=== PATIENT | female | born 1985 ===

== ENCOUNTER 2021-08-07 09:28 | Inpatient (IN) | payer SELFPAY ==
[2021-08-07] MEDS ORDERED: METOCLOPRAMIDE 10 MG/2 ML INJ IV SCH (10:00)
[2021-08-07] MEDS ORDERED: LACTATED RINGERS 1,000 ML IV SCH (10:00)
[2021-08-07] MEDS ORDERED: BICITRA ORAL LIQD 30ML PO SCH (10:00)
[2021-08-07] MEDS ORDERED: ceFAZolin/Water 2 GM/20 ML 2 GM/20 ML SYRINGE IV NR (10:00)
[2021-08-07] MEDS ORDERED: OXYTOCIN DRIP 30 UNITS/500 ML BAG IV SCH ×2 (10:00→17:45)
[2021-08-07] MEDS ORDERED: FAMOTIDINE 20 MG/2 ML INJ IV SCH (10:00)
[2021-08-07] MEDS ORDERED: dexAMETHasone 20 MG/5 ML VIAL ONE (10:18)
[2021-08-07] MEDS ORDERED: LIDOCAINE MPF (2%) 20 MG/1 ML VIAL 5 ML ONE (10:18)
[2021-08-07] MEDS ORDERED: ONDANSETRON 4 MG/2 ML INJ ONE (10:18)
[2021-08-07] MEDS ORDERED: BUPIVACAINE/PF (0.5%) 5 MG/1 ML 30 ML VIAL INFILTRATI ONE ×2 (10:18→13:57)
[2021-08-07] MEDS ORDERED: KETOROLAC 30 MG/1 ML INJ ONE (10:18)
--- NOTE | 2021-08-07 10:26 | Anesthesia Consultation ---
Anesthesia Consult and Med Hx Date of service: 08/07/21 - Airway Anesthetic Teeth Evaluation: Good ROM Head & Neck: Adequate Mental/Hyoid Distance: Adequate Mallampati Class: Class II Intubation Access Assessment: Probably Good - Pulmonary Exam CTA: Yes - Cardiac Exam Cardiac Exam: RRR - Pre-Operative Health Status ASA Pre-Surgery Classification: ASA2 Proposed Anesthetic Plan: Spinal Nerve Block: TAP - Pulmonary Hx Smoking: No Hx Asthma: No COPD: No Hx Pneumonia: No Hx Sleep Apnea: No - Cardiovascular System Hx Hypertension: No Hx Heart Attack/AMI: No Hx Angina: No - Central Nervous System Hx Seizures: No Hx Psychiatric Problems: No - Gastrointestinal Hx Gastroesophageal Reflux Disease: No - Endocrine Hx Renal Disease: No Hx End Stage Renal Disease: No Hx Liver Disease: No Hx Insulin Dependent Diabetes: No Hx Non-Insulin Dependent Diabetes: No Hx Hypothyroidism: No Hx Hyperthyroidism: No - Hematic Hx Anemia: No Hx Sickle Cell Disease: No - Other Systems Hx Alcohol Use: No - Additional Comments Anesthesia Medical History Comments: previous c/s
--- NOTE | 2021-08-07 10:26 | Anesthesia Day of Surgery ---
Anesthesia Day of Surgery - Day of Surgery Patient Examined: Yes Patient H&P Reviewed: Yes Patient is NPO: Yes Beta Blockers: No Cardiac Clearance: No Pulmonary Clearance: No Dae's Test: N/A
--- NOTE | 2021-08-07 10:35 | History and Physical Report ---
History of Present Illness Date of examination: 08/07/21 Date of admission: 08/07/21 09:28 Chief complaint: scheduled repeat c/section History of present illness: at 39.0wks by LMP c/w U/S. care at [facility] and pt seen in clinic at [facility] for her scheduled repeat c/section. Pt also desired permanent sterilization but did not have the finances to pay the hospital for her procedure. pt admits to movement, denies LOF or VB. pt admits to occassional ctx. labs with HIV neg, HepBsAg neg, GBS+, rubella immune, RPR neg the positive with 1:8 titer however FTA negative. Pt denies any tx or exposure to syphilis in the past. Blood type Rh positive with neg antibodies. Past History Past Medical History: no pertinent history Past Surgical History: section (x2 with keloid scar and pt doesn't care if remains) Social history: no significant social history - Obstetrical History Expected Date of Delivery: 08/14/21 Actual Gestation: 39 Week(s) 0 Day(s) : 3 Hx # Term Pregnancies: 2 Number of Living Children: 2 Medications and Allergies Allergies Allergy/AdvReac Type Severity Reaction Status Date / Time No Known Allergies Allergy Verified 08/07/21 09:37 Active Meds: Active Medications Citric Acid/Sodium Citrate (Bicitra Oral Liqd 30ml) 30 ml PO PREOP GALLO Stop: 08/07/21 18:00 Diphenhydramine HCl (Diphenhydramine 50 Mg/Ml Vial) 12.5 mg IV Q2H PRN PRN Reason: Itching Famotidine (Famotidine 20 Mg/2 Ml Inj) 20 mg IV PREOP GALLO Stop: 08/07/21 17:00 Hydromorphone HCl (Hydromorphone 1 Mg/1 Ml Inj) 0.5 mg IV Q4H PRN PRN Reason: breakthrough pain > 7/10 Lactated Ringer's (Lactated Ringers) 1,000 mls @ 2,250 mls/hr IV PREOP GALLO Stop: 08/08/21 10:27 Oxytocin/Sodium Chloride (Pitocin/Ns 30 Unit/500ml) 30 units in 500 mls @ 0 mls/hr IV TITR GALLO; Protocol Cefazolin Sodium (Ancef/Sterile Water 2 Gm/20 Ml) 2 gm in 20 mls @ 80 mls/hr IV PREOP NR; Protocol Stop: 08/07/21 18:00 Metoclopramide HCl (Metoclopramide 10 Mg/2 Ml Inj) 10 mg IV PREOP GALLO Stop: 08/07/21 18:00 Nalbuphine HCl (Nalbuphine 10 Mg/1 Ml Inj) 2.5 mg IV Q2H PRN PRN Reason: Itching Naloxone HCl (Naloxone 0.4 Mg/1 Ml Inj) 0.2 mg IV Q2MIN PRN PRN Reason: Res Rate </= 8 or 02 SAT < 92% Ondansetron HCl (Ondansetron 4 Mg/2 Ml Inj) 4 mg IV Q8H PRN PRN Reason: Nausea And Vomiting Promethazine HCl (Promethazine 25 Mg Tab) 25 mg PO Q6H PRN PRN Reason: Nausea And Vomiting Promethazine HCl (Promethazine 25 Mg Rect Supp) 25 mg TN Q6H PRN PRN Reason: Nausea And Vomiting Review of Systems All systems: negative (no complaints) - Vital Signs Vital signs: Vital Signs Pulse BP Pulse Ox 68 97/54 98 08/07/21 09:55 08/07/21 09:55 08/07/21 09:55 Temp Pulse Resp BP Pulse Ox 98.3 F 61 14 97/54 98 08/07/21 09:56 08/07/21 10:25 08/07/21 09:56 08/07/21 09:56 08/07/21 10:25 - Physical Exam Breasts: Positive: deferred Cardiovascular: Regular rate Lungs: Positive: Normal air movement Genitourinary (Female): Positive: normal external genitalia Vagina: Positive: normal moisture Uterus: Positive: enlarged Extremities: Positive: normal - Obstetrical FHR: category 1 Uterine Contraction Monitor Mode: External Cervical Dilatation: 0 (done 08/06/21 in clinic) Cervical Effacement Percentage: 0 station: -2 Results All other labs normal. Assessment and Plan Multiparous, previous c/s x2 for repeat c/section; unclear why RPR ws ever 1:8 and FTA neg 1. Admit for scheduled repeat c/section 2. Repeat RPR here and notify peds of results in prenatals 3. NICU and anesthesia notified 4. Plan of care already explained and consents obtained in clinic on 08/06/21 All questions encouraged and answered.
[2021-08-07] MEDS ORDERED: HYDROmorphone 1 MG/1 ML INJ IV PRN (11:00)
[2021-08-07] MEDS ORDERED: diphenhydrAMINE 50 MG/ML VIAL IV PRN (11:00)
[2021-08-07] MEDS ORDERED: PROMETHAZINE 25 MG TAB PO PRN (11:00)
[2021-08-07] MEDS ORDERED: NalbUPHINE 10 MG/1 ML INJ IV PRN (11:00)
[2021-08-07] MEDS ORDERED: ONDANSETRON 4 MG/2 ML INJ IV PRN (11:00)
[2021-08-07] MEDS ORDERED: PROMETHAZINE 25 MG RECT SUPP PR PRN (11:00)
[2021-08-07] MEDS ORDERED: NALOXONE 0.4 MG/1 ML INJ IV PRN ×2 (11:00→17:45)
[2021-08-07 11:35] LABS: Hematocrit 33.6 % (30.3-42.9); Mean Corpuscular HGB Conc 33 % (30-34); Mean Corpuscular Volume 89 fl (79-97); Platelet Count 218 K/mm3 (140-440); Red Blood Count 3.79 M/mm3 (3.65-5.03); Red Cell Distribution Width 15.3 % (13.2-15.2)
[2021-08-07 12:06] LABS: Band Neutrophils # (Manual) 0.1 K/mm3; Basophils % (Manual) 0 % (0.0-1.8); Eosinophils % (Manual) 0 % (0.0-4.3); Total Cells Counted 100
[2021-08-07 12:07] LABS: Anisocytosis 1+; Large Platelets Few; Platelet Estimate Consistent w Auto
[2021-08-07] MEDS ORDERED: ePHEDrine SULFATE 50 MG/1 ML INJ ONE (13:51)
--- NOTE | 2021-08-07 13:59 | Progress Note ---
Spinal Anesthesia Block - Spinal Anesthesia Block Start Time: 13:40 Stop Time: 13:47 Performed by:: FREDY AMBRIZ ([facility]) Procedure: Spinal anesthesia block is being performed for [c/s]. H&P, labs have been reviewed. Patient's questions and concerns have been answered. Informed consent has been performed. Timeout has was performed. Patient in sitting position on side of bed. Sterile prep and drape was performed. 3 mL 1% lidocaine skin wheal at L [3]-L [4]. Needle introducer advanced. 25-gauge spinal needle advanced, [+] CSF [-] blood. [Marcaine 10mg and Precedex 5mcg] Spinal dose was given. All needles removed. Patient tolerated procedure well.
[2021-08-07] MEDS ORDERED: LACTATED RINGERS 1,000 ML ONE (15:49)
--- NOTE | 2021-08-07 16:43 | Procedure Note ---
OB Delivery Note - Delivery Date of Delivery: 08/07/21 Surgeon: ROSA GONZALES Estimated blood loss: 500cc - Section Preop diagnosis: repeat Postop diagnosis: same (and partial abruption) section procedure: repeat low transverse (and lysis of adhesion) Disposition: floor Complications: none Narrative: Date: 08/07/21 Surgeon: Rosa Gonzales MD Preop Dx: IUP at 39.0wks, H/O C/Section x2 with keloid scar. Postop Dx: same and partial abruption Procedure : Repeat Low Transverse section Anesthesia: Spinal Intake: 1200cc Output: 350cc clear urine EBL: 500cc After the risks, benefits and alternatives of procedure discussed, patient signed consents and was taken to the operating room. Pt was given spinal anesthesia. After same was adequate, patient was prepped and draped in the usual sterile fashion. Barnes catheter in place and draining clear urine. Pt was given prophylactic antibiotic per protocol and time out was done Pfannenstiel skin incision was made just along upper edge of keloid scar and taken sharply to the fascia and the incision extended using electrocautery. Superior edge of the fascia was grasped with allison clamps and the rectus muscle using blunt dissection and also using electrocautery. Lower portion of the fascia also sharply. Rectus muscle in the midline and Peritoneal cavity entered sharply and extended with good visualization of the bladder. Bladder was densely adherent to mid-level of uterus, and therefore lysis of adhesions done sharply using metzenbaum scissors until the bladder was taken down out of the way. Myles retractor placed. Lower uterine segment then entered transversely and the anterior placenta was noted to be partially with dark color clots, the amniotic sac entered using allys clamps. Uterine incision extended using bandage scissors. delivered, bulb suctioned, cord clamped and baby handed to waiting pediatricians. The remaining attached placenta then delivered completely and uterine cavity cleared of all clots and debri. The uterus was exteriorized and closed in 2 layers using 0-monocryl suture in a running locked fashion and then an additional layer of imbrication suture. The uterus was still boggy therefore additional figure suture placed x4 across the incision with excellent response and now uterus firm. Surgicel powder placed along the incision line. The gutters were cleared of clots and debri and anterior peritoneum closed with anterior rectus muscle and scar tissue 0-vicryl suture in a running fashion. Rectus fascia closed with 0-vicryl suture and subcutaneous tissue copiously irrigated with normal saline and re-approximated using 3-0 vicryl suture in a continous fashion. Excellent hemostasis remains. The skin was closed with 4-0 monocryl suture and steristrips placed with pressure dressing and dermabond to right side near the suture knot for less than 1inch. Sponge, lap, instrument and needle counts x2 were normal. Patient tolerated the procedure well and was taken to recovery room stable. Findings: Viable female , APGARS 8/9 and weight 3280g. Normal shaped uterus with dense bladder peritoneum adhesions and partially anterior placenta with dark red clots, normal tubes and ovaries bilaterally. - Infant A at 1 minute: 8 at 5 minutes: 9 Infant Gender: Female (clear amniotic fluid; wt 3280g)
[2021-08-07] MEDS ORDERED: ACETAMINOPHEN 325 MG TAB PO PRN (17:45)
[2021-08-07] MEDS ORDERED: SENNOSIDES 8.6 MG TAB PO PRN (17:45)
[2021-08-07] MEDS ORDERED: MAGNESIUM HYDROXIDE (MOM) ORAL LIQD UDC PO PRN (17:45)
[2021-08-07] MEDS ORDERED: WITCH HAZEL/ GLYCERIN PAD TP PRN (17:45)
[2021-08-07] MEDS ORDERED: IBUPROFEN 600 MG TAB PO PRN (17:45)
[2021-08-07] MEDS ORDERED: MORPHINE 4 MG/1 ML INJ IV PRN (17:45)
[2021-08-07] MEDS ORDERED: HYDROCORTISONE 25 MG RECTAL SUPP PR PRN (17:45)
[2021-08-07] MEDS ORDERED: LANOLIN/ZINC/DIMETHICONE (LANSINOH) 7 GM TP PRN (17:45)
[2021-08-08] MEDS: oxyCODONE /ACETAMINOPHEN 5-325MG TAB PO PRN ×3 (05:26→16:48)
[2021-08-08 07:46] LABS: Hematocrit 27.3 % (30.3-42.9)
[2021-08-08] MEDS: IBUPROFEN 800 MG TAB PO PRN ×3 (08:02→23:46)
--- NOTE | 2021-08-08 09:53 | Post Anesthesia Evaluation ---
- Post Anesthesia Evaluation Patient Participated: Yes Airway Patent: Yes Stable Respiratory Function: Yes Nausea/Vomiting: No Temp > 96.8F: Yes Pain Manageable: Yes Adequeate Hydration: Yes Anesthesia Complications: No Block Receding Appropriately: Yes
[2021-08-08] MEDS: PRENATAL VIT27-FE FUMARATE-FOLIC ACID VIT TAB PO SCH (10:07)
[2021-08-08] MEDS: FERROUS SULFATE 325 MG TAB PO SCH (10:07)
--- NOTE | 2021-08-08 10:41 | Progress Note ---
Assessment and Plan POD#1 C/S with no flatus and intermittent Low BP, that appears to present from labs 1. Will check EKG with intermittent bradycardia 2. Will give reglan ATC and pt to ambulate in room 3. Will remove dressing tomorrow 4. Routine post op care Subjective Date of service: 08/08/21 Principal diagnosis: POD#1 C/S Interval history: pt lying in bed and has not ambulated in the room. Denies flatus. Denies nausea or vomiting or fever/chills. Vag bleed less than a period. pt is bottle feeding in the hospital and plans to breast feed at home. Objective - Constitutional Vitals: Vital Signs - 12hr 08/08/21 08/08/21 08/08/21 01:20 05:26 05:34 Temperature 98.1 F 97.5 F L Pulse Rate 65 62 Respiratory 16 16 16 Rate Blood Pressure 92/47 106/62 O2 Sat by Pulse 98 99 Oximetry 08/08/21 08:23 Temperature 97.6 F Pulse Rate 63 Respiratory 19 Rate Blood Pressure 88/47 O2 Sat by Pulse 96 Oximetry General appearance: Present: no acute distress - Neck Neck: normal ROM - Respiratory Respiratory effort: normal - Breasts Breasts: deferred - Cardiovascular Rhythm: regular (at times bradycardia noted on vitals) Extremities: No edema - Gastrointestinal General gastrointestinal: Present: soft, non-tender, other (Dressing C/D/I) - Genitourinary Female genitourinary: other (Lochia small, dark brown) - Integumentary Integumentary: warm, dry - Neurologic Neurologic: moves all extremities (while lying in bed) - Psychiatric Psychiatric: cooperative - Labs CBC & Chem 7: 08/08/21 07:10 Labs: Abnormal lab results 08/07/21 08/08/21 Range/Units 10:30 07:10 Hgb 9.0 L (10.1-14.3) gm/dl Hct 27.3 L D (30.3-42.9) % RDW 15.3 H (13.2-15.2) % Seg Neuts % (Manual) 75.0 H (40.0-70.0) % Medications & Allergies - Medications Allergies/Adverse Reactions: Allergies No Known Allergies Allergy (Verified 08/07/21 09:37) Home Medications: Home Medications Medication Instructions Recorded Confirmed Last Taken Type Ibuprofen [Motrin] 800 mg PO Q8HR PRN 21 Days #40 08/07/21 Unknown Rx tablet oxyCODONE /ACETAMINOPHEN [Percocet 1 tab PO Q4HR PRN 21 Days #30 tab 08/07/21 Unknown Rx 5/325] Active Medications: Generic Name Dose Route Start Last Admin Trade Name Freq PRN Reason Stop Dose Admin Acetaminophen 650 mg 08/07/21 17:45 Acetaminophen 325 Mg Tab PO Q4H PRN Fever >100.5/OWUSU Diphenhydramine HCl 12.5 mg 08/07/21 11:00 Diphenhydramine 50 Mg/Ml Vial IV Q2H PRN Itching Ferrous Sulfate 325 mg 08/08/21 10:00 08/08/21 10:07 Ferrous Sulfate 325 Mg Tab PO 325 mg QDAY GALLO Administration Hydrocortisone Acetate 25 mg 08/07/21 17:45 Hydrocortisone 25 Mg Rectal Supp RI BID PRN Hemorrhoids Hydromorphone HCl 0.5 mg 08/07/21 11:00 Hydromorphone 1 Mg/1 Ml Inj IV Q4H PRN breakthrough pain > 7/10 Oxytocin/Sodium Chloride 30 units in 500 mls @ 0 mls/hr 08/07/21 10:00 Pitocin/Ns 30 Unit/500ml IV TITR [facility] Protocol As Directed Cefazolin Sodium 2 gm/ Sodium 100 mls @ 200 mls/hr 08/07/21 22:00 08/08/21 06:34 Chloride IV 08/08/21 14:29 200 mls/hr Q8H GALLO Administration Protocol Oxytocin/Sodium Chloride 30 units in 500 mls @ 40 mls/hr 08/07/21 17:45 Pitocin/Ns 30 Unit/500ml IV TITR [facility] Protocol Ibuprofen 600 mg 08/07/21 17:45 Ibuprofen 600 Mg Tab PO Q6H PRN Pain, Mild (1-3) Ibuprofen 800 mg 08/07/21 17:45 08/08/21 08:02 Ibuprofen 800 Mg Tab PO 800 mg Q6H PRN Administration Pain, Moderate (4-6) Magnesium Hydroxide 30 ml 08/07/21 17:45 Magnesium Hydroxide (Mom) Oral Liqd Udc PO QHS PRN Constip Unrelieved By Senna Metoclopramide HCl 10 mg 08/08/21 11:00 Metoclopramide 10 Mg/2 Ml Inj IV 08/09/21 05:01 Q6H GALLO Morphine Sulfate 4 mg 08/07/21 17:45 Morphine 4 Mg/1 Ml Inj IV Q4H PRN Pain , Severe (7-10) Multi-Ingredient Ointment 1 applic 08/07/21 17:45 Lanolin/Zinc/Dimethicone (Lansinoh) 7 Gm TP PRN PRN dryness/cracking Multivitamins/Iron/Calcium 1 each 08/08/21 10:00 08/08/21 10:07 [id number] Fumarate-Folic Acid Vit Tab PO 1 each QDAY GALLO Administration Nalbuphine HCl 2.5 mg 08/07/21 11:00 Nalbuphine 10 Mg/1 Ml Inj IV Q2H PRN Itching Naloxone HCl 0.2 mg 08/07/21 11:00 Naloxone 0.4 Mg/1 Ml Inj IV Q2MIN PRN Res Rate </= 8 or 02 SAT < 92% Naloxone HCl 0.1 mg 08/07/21 17:45 Naloxone 0.4 Mg/1 Ml Inj IV Q2MIN PRN Res Rate </= 8 or 02 SAT < 92% Ondansetron HCl 4 mg 08/07/21 11:00 Ondansetron 4 Mg/2 Ml Inj IV Q8H PRN Nausea And Vomiting Oxycodone/Acetaminophen 2 tab 08/07/21 17:45 08/08/21 10:07 Oxycodone /Acetaminophen 5-325mg Tab PO 2 tab Q4H PRN Administration Pain, Moderate (4-6) Promethazine HCl 25 mg 08/07/21 11:00 Promethazine 25 Mg Tab PO Q6H PRN Nausea And Vomiting Promethazine HCl 25 mg 08/07/21 11:00 Promethazine 25 Mg Rect Supp RI Q6H PRN Nausea And Vomiting Senna 17.2 mg 08/07/21 17:45 Sennosides 8.6 Mg Tab PO QHS PRN Constipation Simethicone 80 mg 08/07/21 17:45 Simethicone 80 Mg Chew Tab PO Q6H PRN Gas pain Sodium Chloride 10 ml 08/07/21 17:45 Sodium Chloride 0.9% 10 Ml Flush Syringe IV 08/08/21 17:44 PRN NR Witch Reina/Glycerin 1 each 08/07/21 17:45 Witch Reina/ Glycerin Pad TP PRN PRN Hemorrhoids/cleansing/soothing
[2021-08-08] MEDS: SIMETHICONE 80 MG CHEW TAB PO PRN ×2 (10:47→21:12)
[2021-08-08] MEDS: METOCLOPRAMIDE 10 MG/2 ML INJ IV SCH ×3 (10:47→23:46)
[2021-08-08 11:09] LABS: Alanine Aminotransferase 9 units/L (7-56); Albumin 2.8 g/dL (3.9-5); Blood Urea Nitrogen 7 mg/dL (7-17); Calcium 8.4 mg/dL (8.4-10.2); Hemolysis Index 8
[2021-08-08 11:10] LABS: BUN/Creatinine Ratio 18
[2021-08-09] MEDS: METOCLOPRAMIDE 10 MG/2 ML INJ IV SCH (06:47)
[2021-08-09] MEDS: IBUPROFEN 800 MG TAB PO PRN ×3 (06:47→18:46)
[2021-08-09] MEDS: FERROUS SULFATE 325 MG TAB PO SCH (09:13)
[2021-08-09] MEDS: PRENATAL VIT27-FE FUMARATE-FOLIC ACID VIT TAB PO SCH (09:13)
[2021-08-09] MEDS ORDERED: LACTATED RINGERS 500 ML IV ONE ×2 (09:29→12:30)
--- NOTE | 2021-08-09 10:59 | Progress Note ---
Assessment and Plan A: /postop day 2 S/P section. Anemia. Lowish blood pressure. P: CBC, UA, urine culture. IV fluid bolus (LR). Recheck VS. Psych consult for positive depression screen. Remove dressing in shower today. Subjective - Subjective Date of service: 08/09/21 Principal diagnosis: /postop day 2 S/P section Interval history: Patient has psych consult pending due to positive depression screen. Patient reports: appetite normal, voiding normally, pain well controlled, flatus, ambulating normally, no dizzy ambulation, no nauseated [place]: doing well Objective - Vital Signs Latest vital signs: Vital Signs Temp Pulse Resp BP BP Pulse Ox Pulse Ox 08/09/21 08:33 98.4 F 99 H 83/44 08/09/21 06:47 14 08/08/21 23:50 98.2 F 58 L 18 95/56 95 08/08/21 23:46 16 08/08/21 20:20 96 08/08/21 17:35 98.1 F 61 18 94/48 96 08/08/21 12:15 97.8 F 60 18 78/41 98 Intake and Output 08/08/21 08/09/21 08/09/21 23:59 07:59 15:59 Intake Total 360 120 Balance 360 120 Intake: Oral 120 Intake, Free Water 360 Other: Total, Intake Amount 120 # Voids Void 1 1 - Exam Cardiovascular: Present: Regular rate, No murmurs Lungs: Present: Clear to auscultation Abdomen: Present: normal appearance, soft, normal bowel sounds. Absent: distention, tenderness, guarding Uterus: Present: normal, firm, fundal height below umbilicus. Absent: bogginess, tenderness Extremities: Absent: tenderness Incision: Present: dry, dressed (patient agrees for us to take dressing off in shower this morning) - Labs Labs: Abnormal lab results 08/08/21 08/08/21 Range/Units 10:03 11:04 Chloride 107.7 H (98-107) mmol/L Carbon Dioxide 20 L (22-30) mmol/L Creatinine 0.4 L (0.6-1.2) mg/dL POC Glucose 110 H (70-105) mg/dL Alkaline Phosphatase 166 H (35-129) units/L Total Protein 5.4 L (6.3-8.2) g/dL Albumin 2.8 L (3.9-5) g/dL
[2021-08-09 14:08] LABS: Basophils % (Auto) 0.5 % (0.0-1.8); Eosinophils % (Auto) 0.3 % (0.0-4.3); Hematocrit 29.9 % (30.3-42.9); Hemoglobin 9.9 gm/dl (10.1-14.3); Lymphocytes # (Auto) 1.4 K/mm3 (1.2-5.4); Lymphocytes % (Auto) 15.3 % (13.4-35.0); Mean Corpuscular HGB Conc 33 % (30-34); Mean Corpuscular Volume 90 fl (79-97); Monocytes # (Auto) 0.4 K/mm3 (0.0-0.8); Monocytes % (Auto) 4.8 % (0.0-7.3); Platelet Count 232 K/mm3 (140-440); Red Blood Count 3.34 M/mm3 (3.65-5.03); Red Cell Distribution Width 15.9 % (13.2-15.2)
[2021-08-09 18:25] LABS: Bacteria,Urine 1+ /HPF (Negative); Bilirubin,Urine NEG (Negative); Blood,Urine LG (Negative); Color,Urine Yellow (Yellow); Mucus,Urine FEW /HPF; Protein,Urine <15 mg/dL mg/dL (Negative); Urobilinogen,Urine < 2.0 mg/dL (<2.0)
[2021-08-09] MEDS: oxyCODONE /ACETAMINOPHEN 5-325MG TAB PO PRN (22:53)
--- NOTE | 2021-08-10 00:43 | Progress Note ---
Assessment and Plan Hemoglobin stable DC home today with appropriate follow-up Routine postop care Sheldon Gómez MD Subjective - Subjective Date of service: 08/10/21 Principal diagnosis: /postop day 3 S/P section Patient reports: appetite normal, voiding normally, pain well controlled, ambulating normally : doing well Objective - Vital Signs Latest vital signs: Vital Signs Temp Pulse Resp BP Pulse Ox 08/09/21 22:53 18 08/09/21 18:46 16 08/09/21 12:49 16 08/09/21 08:33 98.4 F 99 H 83/44 08/09/21 08:25 100 08/09/21 06:47 14 - Exam Breasts: Present: deferred Cardiovascular: Present: Regular rate Lungs: Present: Clear to auscultation Abdomen: Present: normal appearance, soft, normal bowel sounds Uterus: Present: fundal height below umbilicus Extremities: Present: normal Deep Tendon Reflex Grade: Normal +2 Incision: Present: normal, dry, intact - Labs Labs: Abnormal lab results 08/09/21 Range/Units 13:10 RBC 3.34 L (3.65-5.03) M/mm3 Hgb 9.9 L (10.1-14.3) gm/dl Hct 29.9 L (30.3-42.9) % RDW 15.9 H (13.2-15.2) % Seg Neutrophils % 79.1 H (40.0-70.0) %
--- NOTE | 2021-08-10 00:44 | Discharge Summary ---
Providers - Providers Date of Admission: 08/07/21 09:28 Date of discharge: 08/10/21 Attending physician: MICHELINE GONZALES 08/08/21 18:10 psychiatry consult [Consult to Mental Health] [CONS] Routine Reason For Exam: Ponder score 23 Primary care physician: MICHELINE GONZALES Hospitalization Delivery: Discharge diagnosis: IUP at term delivered Condition at discharge: Stable Disposition: 01 HOME / SELF CARE / HOMELESS Plan - Discharge Medications Prescriptions: Ibuprofen [Motrin] 800 mg PO Q8HR PRN 21 Days #40 tablet PRN Reason: Pain, Moderate (4-6) oxyCODONE /ACETAMINOPHEN [Percocet 5/325] 1 tab PO Q4HR PRN 21 Days #30 tab PRN Reason: Pain , Severe (7-10) - Provider Discharge Summary Activity: no sex for 6 weeks Diet: routine Instructions: routine Additional instructions: [] Smoking cessation referral if applicable(refer to patient education folder for contact #) [] Refer to [facility] Booklet Call your doctor immediately for: * Fever > 100.5 * Heavy vaginal bleeding ( >1 pad per hour) * Severe persistent headache * Shortness of breath * Reddened, hot, painful area to leg or breast * Drainage or odor from incision. * Keep incision clean and dry at all times and follow doctor's instructions regarding bathing/showering - Follow up plan Follow up: MICHELINE GONZALES MD [Primary Care Provider] - 7 Days
[2021-08-10 09:16] VITALS: BP 95/59
--- NOTE | 2021-08-10 11:39 | Consultation ---
History of Present Illness - Reason for Consult Consult date: 08/10/21 Reason for consult: Waverly 23 - Chief Complaint Chief complaint: scheduled repeat c/section - History of Present Psychiatric Illness The patient is a 36 year old female with no psychiatric history who was consulted for Waverly score of 23. Soils Technician Alana # [id number] was utilized for this interview. The patient is calm, alert and oriented x3. The patient was seen with her and her baby in the room. The patient denies symptoms of depression and denies feeling excessively anxious. She reports mood as fine, sleep and appetite as good. She reports that she has family support and looking forward to going home to her other 2 children. The patient denies any current suicidal/homicidal ideation and denies hallucinations. PAST PSYCHIATRIC HISTORY Diagnoses:Denies Suicide attempts or Self-harm behavior: Denies Prior psychiatric hospitalizations: Denies Substance Abuse history: Denies Previous psychiatric medications tried: Denies Outpatient treatment: Denies PAST MEDICAL HISTORY: Family Psychiatric History: Not available SOCIAL HISTORY Marital Status: Living Arrangements: Lives with Employment Status: Unemployed Access to guns/weapons: None reported Education:8th grade History of Abuse: None reported Legal History: None reported REVIEW OF SYSTEMS Constitutional: Negative for weight loss ENT: Negative for stridor Respiratory: Negative for cough or hemoptysis All other systems reviewed and are negative MENTAL STATUS EXAMINATION General Appearance and Behavior: Age appropriate, good hygiene, wearing appropriate clothes, good eye contact, cooperative polite with questioning. Cooperation: Participating/engaged Psychomotor Behavior: unremarkable and within normal limits Mood:"fine" Affect and affective range: congruent with mood Thought Process: Goal directed Thought Content: reality oriented Speech: Normal volume, Regular rate and rhythm Intellectual Functioning: Average Suicidal Ideation: Denies Homicidal Ideation: Denies Hallucinations: Denies Impulse Control: Unimpaired Insight and Judgment: Normal insight and judgment Memory: Normal Attention: Divided Orientation: Alert, oriented Assessment and Plan (1) Current Visit: Yes Status: Acute RECOMMENDATIONS continue home meds. Case management Risks, benefits and alternatives of medications discussed with the patient, questions answered and consent obtained from patient. PSYCHOTHERAPY: Supportive psychotherapy provided MEDICAL: Per primary team DELIRIUM PRECAUTIONS: Please re-orient patient frequently, keep lights on during the day, and minimize benzodiazepines and opiates as these medications could worsen patient's confusion. 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 Film Coater will provide patient with psychiatric outpatient resources FOLLOW-UP: Will sign off. Thank you for the consult. Please contact with any questions and/or concerns. Medications and Allergies Medications and Allergies Allergies Allergy/AdvReac Type Severity Reaction Status Date / Time No Known Allergies Allergy Verified 08/07/21 09:37 Home Medications Medication Instructions Recorded Confirmed Last Taken Type Ibuprofen [Motrin] 800 mg PO Q8HR PRN 21 Days #40 08/07/21 Unknown Rx tablet oxyCODONE /ACETAMINOPHEN [Percocet 1 tab PO Q4HR PRN 21 Days #30 tab 08/07/21 Unknown Rx 5/325] Active Meds: Active Medications Acetaminophen (Acetaminophen 325 Mg Tab) 650 mg PO Q4H PRN PRN Reason: Fever >100.5/OWUSU Diphenhydramine HCl (Diphenhydramine 50 Mg/Ml Vial) 12.5 mg IV Q2H PRN PRN Reason: Itching Ferrous Sulfate (Ferrous Sulfate 325 Mg Tab) 325 mg PO QDAY GALLO Last Admin: 08/09/21 09:13 Dose: 325 mg Hydrocortisone Acetate (Hydrocortisone 25 Mg Rectal Supp) 25 mg ID BID PRN PRN Reason: Hemorrhoids Hydromorphone HCl (Hydromorphone 1 Mg/1 Ml Inj) 0.5 mg IV Q4H PRN PRN Reason: breakthrough pain > 7/10 Oxytocin/Sodium Chloride (Pitocin/Ns 30 Unit/500ml) 30 units in 500 mls @ 0 mls/hr IV TITR GALLO; Protocol Oxytocin/Sodium Chloride (Pitocin/Ns 30 Unit/500ml) 30 units in 500 mls @ 40 mls/hr IV TITR GALLO; Protocol Ibuprofen (Ibuprofen 600 Mg Tab) 600 mg PO Q6H PRN PRN Reason: Pain, Mild (1-3) Ibuprofen (Ibuprofen 800 Mg Tab) 800 mg PO Q6H PRN PRN Reason: Pain, Moderate (4-6) Last Admin: 08/09/21 18:46 Dose: 800 mg Magnesium Hydroxide (Magnesium Hydroxide (Mom) Oral Liqd Udc) 30 ml PO QHS PRN PRN Reason: Constip Unrelieved By Senna Morphine Sulfate (Morphine 4 Mg/1 Ml Inj) 4 mg IV Q4H PRN PRN Reason: Pain , Severe (7-10) Multi-Ingredient Ointment (Lanolin/Zinc/Dimethicone (Lansinoh) 7 Gm) 1 applic TP PRN PRN PRN Reason: dryness/cracking Multivitamins/Iron/Calcium ( [id number] Fumarate-Folic Acid Vit Tab) 1 each PO QDAY GALLO Last Admin: 08/09/21 09:13 Dose: 1 each Nalbuphine HCl (Nalbuphine 10 Mg/1 Ml Inj) 2.5 mg IV Q2H PRN PRN Reason: Itching Naloxone HCl (Naloxone 0.4 Mg/1 Ml Inj) 0.2 mg IV Q2MIN PRN PRN Reason: Res Rate </= 8 or 02 SAT < 92% Naloxone HCl (Naloxone 0.4 Mg/1 Ml Inj) 0.1 mg IV Q2MIN PRN PRN Reason: Res Rate </= 8 or 02 SAT < 92% Ondansetron HCl (Ondansetron 4 Mg/2 Ml Inj) 4 mg IV Q8H PRN PRN Reason: Nausea And Vomiting Oxycodone/Acetaminophen (Oxycodone /Acetaminophen 5-325mg Tab) 2 tab PO Q4H PRN PRN Reason: Pain, Moderate (4-6) Last Admin: 08/09/21 22:53 Dose: 2 tab Promethazine HCl (Promethazine 25 Mg Tab) 25 mg PO Q6H PRN PRN Reason: Nausea And Vomiting Promethazine HCl (Promethazine 25 Mg Rect Supp) 25 mg ID Q6H PRN PRN Reason: Nausea And Vomiting Senna (Sennosides 8.6 Mg Tab) 17.2 mg PO QHS PRN PRN Reason: Constipation Simethicone (Simethicone 80 Mg Chew Tab) 80 mg PO Q6H PRN PRN Reason: Gas pain Last Admin: 08/08/21 21:12 Dose: 80 mg Witch Reina/Glycerin (Witch Reina/ Glycerin Pad) 1 each TP PRN PRN PRN Reason: Hemorrhoids/cleansing/soothing Mental Status Exam - Vital signs Last Vital Signs Temp 98.0 F 08/10/21 08:04 Pulse 78 08/10/21 08:04 Resp 17 08/10/21 08:04 BP 95/59 08/10/21 08:04 Pulse Ox 95 08/10/21 08:04 Results Result Diagrams: 08/09/21 13:10 02/03/22 10:03 Abnormal lab results 08/09/21 Range/Units 13:10 RBC 3.34 L (3.65-5.03) M/mm3 Hgb 9.9 L (10.1-14.3) gm/dl Hct 29.9 L (30.3-42.9) % RDW 15.9 H (13.2-15.2) % Seg Neutrophils % 79.1 H (40.0-70.0) % All other labs normal.
[2021-08-10] MEDS: oxyCODONE /ACETAMINOPHEN 5-325MG TAB PO PRN (11:56)
[2021-08-10] MEDS: PRENATAL VIT27-FE FUMARATE-FOLIC ACID VIT TAB PO SCH (11:57)
[2021-08-10] MEDS: FERROUS SULFATE 325 MG TAB PO SCH (11:57)
[2021-08-10] MEDS: SIMETHICONE 80 MG CHEW TAB PO PRN (11:57)
== END 2021-08-10 15:30 | disposition home or self-care (01) | DRG 786 ==
LOC: APU 09:28 → OB 17:39
PROVIDERS: ADMIT Obstetrics & Gynecology; ATTEND Obstetrics & Gynecology
PROC: 10D00Z1 Extraction of Products of Conception, Low, Open Approach (ICD-10-PCS; principal; 2021-08-07)
DX: O34.211 Maternal care for low transverse scar from previous cesarean delivery (principal); O45.93 Premature separation of placenta, unspecified, third trimester; Z20.822 Contact with and (suspected) exposure to COVID-19; Z3A.39 39 weeks gestation of pregnancy; Z37.0 Single live birth; O90.81 Anemia of the puerperium
CPT/HCPCS: 36415; 80053; 81001; 82962; 85007; 85014; 85018; 85025; 86592; 86850; 86900; 86901; 87086; 88307; G0378; J3490; J7121; J0690; J1100; J1885; J2405; J2765; J7120; U0003